=== PATIENT | female | born 1970 | race Caucasian/White ===

== ENCOUNTER 2018-04-01 16:41 | Emergency (ER) | payer SELFPAY ==
--- NOTE | 2018-04-01 17:08 | ED Physician Documentation ---
General Adult - HISTORIAN Historian: patient - HPI Stated Complaint: Weakness/Headache x 4 Days Chief Complaint: General Adult Additional Information: 4 days aching occipital CORTES. Feels tired, like she is about to pass out. Has been in the heat a lot. Walks wherever she goes. Urine x2 today. Some itching with urination. Calls herself homeless, but lives with aunt. Was on cholesterol med, but ran out last evening. Was living in [place] and had health care there . - ROS CONST: no problems - PAST HX Past History: other (HLD) Allergies/Adverse Reactions: Allergies Allergy/AdvReac Type Severity Reaction Status Date / Time Sulfa (Sulfonamide Allergy Verified 04/01/18 17:01 Antibiotics) - SOCIAL HX Smoking History: cigarettes - FAMILY HX Family History: No - VITAL SIGNS Vital Signs: Vital Signs Temp Pulse Resp BP Pulse Ox 98.1 F 82 16 101/76 95 04/01/18 16:45 04/01/18 16:45 04/01/18 16:45 04/01/18 16:45 04/01/18 16:45 - REVIEWED ASSESSMENTS Nursing Assessment Reviewed: Yes Vitals Reviewed: Yes Progress - Progress Progress: Orthostatics and labs good. Feels good after 1L NS and toradol. Ready to go home. ED Results Lab/Radiology - Orders Orders: ED Orders Category Date Time Status Place IV Lock 1T Care 04/01/18 17:05 Active CBC/PLATELET/DIFF Routine Lab 04/01/18 Ordered CMP Routine Lab 04/01/18 Ordered URINALYSIS Routine Lab 04/01/18 Ordered 0.9 % Sodium Chloride [Normal Saline] 1,000 ml Med 04/01/18 17:05 Active IV Q1H Ketorolac Tromethamine [Toradol] Med 04/01/18 17:05 Once 30 mg IVP NOW ONE General Adult Physical Exam - PHYSICAL EXAM GENERAL APPEARANCE: mild distress EENT: eye inspection normal, ENT inspection normal, pharynx normal, dry mucous membranes NECK: normal inspection, supple RESPIRATORY: no resp distress, breath sounds normal CVS: reg rate & rhythm, heart sounds normal, no murmur ABDOMEN: no distension, other (reports discomfort with palpation with right mid to lower abdomen) BACK: normal inspection, no CVA tenderness EXTREMITIES: non-tender, normal range of motion NEURO: CN's nml as tested, motor nml, sensation nml, cognition normal Discharge Clincal Impression: Headache Qualifiers: Headache type: unspecified Headache chronicity pattern: acute headache Intractability: not intractable Qualified Code(s): R51 - Headache Referrals: Primary Doctor,No [Primary Care Provider] - 2 Days Additional Instructions: YOUR LABORATORY TEST RESULTS WERE REASSURING. DRINK PLENTY OF WATER. Condition: Good Disposition: 01 HOME, SELF-CARE Decision to Admit: NO Decision Time: 17:55
[2018-04-01] MEDS: KETOROLAC TROMETHAMINE 30 MG/1ML VIAL IVP ONE (17:20)
[2018-04-01] MEDS: 0.9 % SODIUM CHLORIDE 1,000 ML IV ONE (17:20)
[2018-04-01 17:38] LABS: BASOPHILS % 0.4 (0.0-1.5); EOSINOPHILS % 1.3 % (0.0-6.8); MEAN CORPUSCULAR HEMOGLOBIN 31.7 pg (28.0-34.0); MEAN CORPUSCULAR VOLUME 93.9 fl (80.0-100.0); MONOCYTES % 3.8 % (0.0-11.0)
[2018-04-01 17:46] LABS: eGFR (African) > 60; eGFR (Non-African) > 60
[2018-04-01 18:05] VITALS: BP 113/71
[2018-04-02 07:52] LABS: APPEARANCE,URINE CLEAR (CLEAR); COLOR,URINE YELLOW (YELLOW); OCCULT BLOOD,URINE 2+ (NEGATIVE)
[2018-04-02 07:54] LABS: PH URINE 5.5 (5.0 - 8.0); UROBILINOGEN URINE 0.2 Eu (0.2-1.0)
== END 2018-04-01 18:02 | disposition home or self-care (01) ==
LOC: ED 16:41
DX: R51 Headache (principal)
CPT/HCPCS: 80053; 85025; J1885; J7030; 81002; 96365; 96375; 99284; S1016

== ENCOUNTER 2018-05-11 10:50 | Emergency (ER) | payer SELFPAY ==
[2018-05-11 11:00] VITALS: BP 119/81
--- NOTE | 2018-05-11 11:19 | ED Physician Documentation ---
Abdominal Pain - HISTORIAN Historian: patient - HPI Stated Complaint: Abd/back pain Chief Complaint: Abdominal Pain Additonal Information: Patient states that she has had about a 10 day history of abd pain. left lower abd area and radiates into flank area. No hematuria noted. Is having some discomfort with urination. BM have been OK. No blood in stool. Has had some mild nausea, no vomiting. No fever or chills. Has been having some bad headaches. If she gets dehydrated or has and infection in her body she will get headaches. Feels tired. Has gone through menopause. Onset: days ago (10 days) Duration: constant Timing: still present Context: denies: out of country travel, bad food Severity: moderate Quality: aching Associated Symptoms: nausea. denies: fever, chills Exacerbated by: nothing Relieved by: nothing - ROS CONST: no problems GI/: problems urinating. denies: constipation, black stools, bloody urine, bloody stools, dark urine CVS/RESP: denies: palpitations, shortness of breath, hurts to breath - SOCIAL HX Smoking History: greater than 1 pack/day (30 cig / day) Alcohol Use: none Drug Use: none - FAMILY HX Family History: no significant history - PAST HX Past History: none Ischemic Bowel Risk Factors: none Surgeries/Procedures: cholecystectomy, BLT, other (ovarian cyst removed) Immunizations: referred to PCP Home Medications: Ambulatory Orders Medication Instructions Recorded NK 05/11/18 Allergies/Adverse Reactions: Allergies Allergy/AdvReac Type Severity Reaction Status Date / Time Sulfa (Sulfonamide Allergy Verified 05/11/18 11:00 Antibiotics) - VITAL SIGNS Vital Signs: Vital Signs Temp Pulse Resp BP Pulse Ox 96.2 F L 74 15 119/81 97 05/11/18 15:19 05/11/18 15:19 05/11/18 15:19 05/11/18 15:19 05/11/18 15:19 - REVIEWED ASSESSMENTS Nursing Assessment Reviewed: Yes Vitals Reviewed: Yes Progress - Progress Progress: 13:52 Abd pain about the same. labs and x-ray OK. Will get CT scan 15:13 Patient advised that her blood work, urine and CT scan was normal. Possible viral infection or colon problem. If not improving to consider a colonoscopy. ED Results Lab/Radiology - Lab Results Lab Results: Lab Results 05/11/18 05/11/18 Unknown Unknown WBC 7.30 K/ul K/ul (4.00-12.00) RBC 4.44 M/ul M/ul (3.90-5.20) Hgb 13.6 g/dL g/dL (12.0-16.0) Hct 41.7 % % (34.5-46.5) MCV 93.9 fl fl (80.0-100.0) MCH 30.6 pg pg (28.0-34.0) MCHC 32.6 g/dL g/dL (30.0-36.0) RDW 13.5 % % (11.3-14.3) Plt Count 214 K/mm3 K/mm3 (130-400) Neut % (Auto) 60.7 % % (39.0-79.0) Lymph % (Auto) 32.5 % % (16.0-50.0) Kingfisher % (Auto) 3.2 % % (0.0-11.0) Eos % (Auto) 1.4 % % (0.0-6.8) Baso % (Auto) 0.4 (0.0-1.5) Neut # (Auto) 4.4 # k/uL # k/uL (1.4-7.7) Lymph # (Auto) 2.4 # k/uL # k/uL (0.6-4.0) Kingfisher # (Auto) 0.2 # k/uL # k/uL (0.0-0.9) Eos # (Auto) 0.1 # k/uL # k/uL (0.0-0.6) Baso # (Auto) 0.0 # k/uL # k/uL (0.0-0.5) Reactive Lymphs % 1.8 % % (0.0-5.0) Reactive Lymphs # 0.1 # k/uL # k/uL (0.0-0.8) Sodium 142 mmol/L mmol/L (136-145) Potassium 3.8 mmol/L mmol/L (3.5-5.1) Chloride 104 mmol/L mmol/L (98-107) Carbon Dioxide 29 mmol/L mmol/L (22-30) BUN 12 mg/dL mg/dL (7-17) Creatinine 0.70 mg/dL mg/dL (0.52-1.04) Estimated Creat Clear 142 Est GFR ( Amer) > 60 (60 - ) Est GFR (Non-Af Amer) > 60 (60 - ) Glucose 101 mg/dL mg/dL (74-106) Calcium 8.7 mg/dL mg/dL (8.4-10.2) Total Bilirubin 0.3 mg/dL mg/dL (0.2-1.3) AST 12 U/L L U/L (15-46) ALT 22 U/L U/L (13-69) Alkaline Phosphatase 92 U/L U/L (38-126) Total Protein 7.7 g/dL g/dL (6.3-8.2) Albumin 4.3 g/dL g/dL (3.5-5.0) Lipase 52 U/L U/L (23-300) - Radiology Radiology Impressions: PA chest and obstructive series History: Left lower quadrant pain and bloating PA chest demonstrates a calcified granuloma at the mid right lung. Otherwise, the lungs are clear. The cardiomediastinal silhouette is normal. Flat and upright views of the abdomen demonstrate no free air. Clips from a cholecystectomy are present. Clips from tubal ligation are present. The bowel gas pattern is nonobstructive. Psoas margins are intact. No abnormal calcifications are noted. Impression: Old granulomatous disease. No acute cardiopulmonary process. Status post cholecystectomy. Nonobstructive bowel gas pattern. Clips from tubal ligation. CT abdomen and pelvis with contrast History: Left lower quadrant pain Technique: Helically acquired images were obtained from the hemidiaphragms to the pelvic floor following IV but no oral contrast. Findings: There has been a cholecystectomy. The liver, spleen, adrenal glands, pancreas and the left kidney are unremarkable. At the upper pole right kidney, there is a 1 cm cyst. Otherwise, the right kidney is unremarkable. The abdominal aorta is normal in caliber. Small and large bowel loops are normal in caliber. The appendix is normal. Tubal ligation clips are present the pelvis with some beam hardening artifact. Otherwise, the uterus, adnexal structures and bladder are unremarkable. There is no free fluid in the abdomen or pelvis. There is a 1 cm bleb at the right lower lobe. Otherwise, the lung bases are clear. No significant osseous abnormalities are noted. Impression: Status post cholecystectomy and bilateral tubal ligation. 1 cm cyst upper pole right kidney. No acute intra-abdominal intrapelvic abnormality. - Orders Orders: ED Orders Category Date Time Status Place IV Lock 1T Care 05/11/18 11:26 Active ABD SERIES PA CHEST [RAD] Stat Exams 05/11/[address] ABD & PELVIS W/ CON Stat Exams 05/11/18 Taken CBC/PLATELET/DIFF Routine Lab 05/11/18 Completed CMP Routine Lab 05/11/18 Completed LIPASE Routine Lab 05/11/18 Completed URINALYSIS Routine Lab 05/11/18 11:59 Ordered Abdominal Pain Physical Exam - Physical Exam General Appearance: alert, mild distress EENT: ENT inspection normal NECK: normal inspection, supple. No: stiff neck RESPIRATORY: no resp distress, chest non-tender, breath sounds normal. No: wheezes, rales, rhonchi CVS: reg rate & rhythm, heart sounds normal, equal pulses, no murmur ABDOMEN: soft, no organomegaly, normal bowel sounds, no distension, tenderness (LLQ area). No: mass, rebound, guarding BACK: normal inspection, CVA tenderness (R) SKIN: warm/dry, normal color NEURO: oriented X3, CN's nml as tested, motor nml, sensation nml, mood/affect nml, cognition normal Vital Signs: Vital Signs Temp Pulse Resp BP Pulse Ox 96.2 F L 74 15 119/81 97 05/11/18 15:19 05/11/18 15:19 05/11/18 15:19 05/11/18 15:19 05/11/18 15:19 Discharge Clincal Impression: Abdominal pain Referrals: Primary Doctor,No [Primary Care Provider] - 2 Days Additional Instructions: Try taking in a clear liquid diet for the next 24 hours. Watch for any fever or chills. If you continue to have some abd pain to see your primary care provider for further work-up Condition: Stable Disposition: 01 HOME, SELF-CARE Decision to Admit: NO Date of Decison to Admit: 05/11/18 Decision Time: 15:06
[2018-05-11 12:02] LABS: BASOPHILS % 0.4 (0.0-1.5); EOSINOPHILS % 1.4 % (0.0-6.8); MEAN CORPUSCULAR HEMOGLOBIN 30.6 pg (28.0-34.0); MEAN CORPUSCULAR VOLUME 93.9 fl (80.0-100.0); MONOCYTES % 3.2 % (0.0-11.0); NEUTROPHILS # 4.4 # k/uL (1.4-7.7)
[2018-05-11 12:05] LABS: eGFR (African) > 60; eGFR (Non-African) > 60
--- NOTE | 2018-05-11 17:27 | Diagnostic Imaging Report ---
DIMAS SCHWARTZ [facility] [address] [facility].[address] [address] Report Submission Date: May 11, 2018 2:49:23 PM CDT Patient Study Name: ESTELITA CAGLE Date: May 11, 2018 2:08:49 PM CDT Modality Type: CT\SR Gender: F Description: CT ABD PELVIS W/ CON : 70 Institution: [facility] Physician: DIMAS SCHWARTZ CT abdomen and pelvis with contrast History: Left lower quadrant pain Technique: Helically acquired images were obtained from the hemidiaphragms to the pelvic floor following IV but no oral contrast. Findings: There has been a cholecystectomy. The liver, spleen, adrenal glands, pancreas and the left kidney are unremarkable. At the upper pole right kidney, there is a 1 cm cyst. Otherwise, the right kidney is unremarkable. The abdominal aorta is normal in caliber. Small and large bowel loops are normal in caliber. The appendix is normal. Tubal ligation clips are present the pelvis with some beam hardening artifact. Otherwise, the uterus, adnexal structures and bladder are unremarkable. There is no free fluid in the abdomen or pelvis. There is a 1 cm bleb at the right lower lobe. Otherwise, the lung bases are clear. No significant osseous abnormalities are noted. Impression: Status post cholecystectomy and bilateral tubal ligation. 1 cm cyst upper pole right kidney. No acute intra-abdominal intrapelvic abnormality. Electronically signed on May 11, 2018 2:49:23 PM CDT by: Rachael GALDAMEZ
[2018-05-11 17:28] LABS: APPEARANCE,URINE CLEAR (CLEAR); COLOR,URINE YELLOW (YELLOW); OCCULT BLOOD,URINE 1+ (NEGATIVE); PH URINE 5.5 (5.0 - 8.0); UROBILINOGEN URINE 0.2 Eu (0.2-1.0)
--- NOTE | 2018-05-11 17:33 | Diagnostic Imaging Report ---
DIMAS SCHWARTZ [facility] [address] [facility].[address] [address] Report Submission Date: May 11, 2018 2:49:23 PM CDT Patient Study Name: ESTELITA CAGLE Date: May 11, 2018 2:08:49 PM CDT Modality Type: CT\SR Gender: F Description: CT ABD PELVIS W/ CON : 70 Institution: [facility] Physician: DIMAS SCHWARTZ CT abdomen and pelvis with contrast History: Left lower quadrant pain Technique: Helically acquired images were obtained from the hemidiaphragms to the pelvic floor following IV but no oral contrast. Findings: There has been a cholecystectomy. The liver, spleen, adrenal glands, pancreas and the left kidney are unremarkable. At the upper pole right kidney, there is a 1 cm cyst. Otherwise, the right kidney is unremarkable. The abdominal aorta is normal in caliber. Small and large bowel loops are normal in caliber. The appendix is normal. Tubal ligation clips are present the pelvis with some beam hardening artifact. Otherwise, the uterus, adnexal structures and bladder are unremarkable. There is no free fluid in the abdomen or pelvis. There is a 1 cm bleb at the right lower lobe. Otherwise, the lung bases are clear. No significant osseous abnormalities are noted. Impression: Status post cholecystectomy and bilateral tubal ligation. 1 cm cyst upper pole right kidney. No acute intra-abdominal intrapelvic abnormality. Electronically signed on May 11, 2018 2:49:23 PM CDT by: Rachael GALDAMEZ
== END 2018-05-11 15:19 | disposition home or self-care (01) ==
LOC: ED 10:50
DX: R10.9 Unspecified abdominal pain (principal)
CPT/HCPCS: 74022; 74177; 80053; 81002; 83690; 85025; 99284; S1016

== ENCOUNTER 2018-06-18 15:25 | Emergency (ER) | payer SELFPAY ==
[2018-06-18] MEDS: KETOROLAC TROMETHAMINE 60 MG/2 ML VIAL IM ONE (15:52)
[2018-06-18] MEDS: ORPHENADRINE CITRATE 60 MG/2ML IM ONE (15:52)
--- NOTE | 2018-06-18 16:04 | ED Physician Documentation ---
General Adult - HISTORIAN Historian: patient - HPI Stated Complaint: dizzy Chief Complaint: General Adult Additional Information: Aching bi temporal CORTES for a week and a half. Feels tired and sometimes light headed. Sometimes hard to swallow. Tylenol helps a little. Has had CORTES's in the past, but this is different. Also wonders if she has a UTI as she thinks she is urinating frequently and has burning with urination.No other modifying factors or associated signs. - ROS CONST: denies: fever NEURO/PSYCH: denies: tingling, numbness, difficulty walking - PAST HX Past History: none Allergies/Adverse Reactions: Allergies Allergy/AdvReac Type Severity Reaction Status Date / Time Sulfa (Sulfonamide Allergy Verified 06/18/18 15:43 Antibiotics) Home Medications: Ambulatory Orders Medication Instructions Recorded Cyclobenzaprine HCl [Flexeril] 10 mg PO HS #10 tablet 06/18/18 Naproxen [Naprosyn] 375 mg PO Q12H #20 tablet 06/18/18 - SOCIAL HX Smoking History: cigarettes - FAMILY HX Family History: No - VITAL SIGNS Vital Signs: Vital Signs Temp Pulse Resp BP Pulse Ox 98.3 F 77 18 140/88 99 06/18/18 15:29 06/18/18 15:29 06/18/18 15:29 06/18/18 15:29 06/18/18 15:29 - REVIEWED ASSESSMENTS Nursing Assessment Reviewed: Yes Vitals Reviewed: Yes ED Results Lab/Radiology - Orders Orders: ED Orders Category Date Time Status Ketorolac Tromethamine [Toradol] Med 06/18/18 15:52 Once 60 mg IM NOW ONE Orphenadrine Citrate [Norflex] Med 06/18/18 15:52 Once 60 mg IM NOW ONE General Adult Physical Exam - PHYSICAL EXAM GENERAL APPEARANCE: mild distress EENT: eye inspection normal, ENT inspection normal, pharynx normal, DORA (EOMI), no nystagmus NECK: normal inspection, supple, other (L trap spasm. Palpation of this area reproduces her pain) RESPIRATORY: no resp distress, breath sounds normal CVS: reg rate & rhythm, heart sounds normal, no murmur BACK: normal inspection, no CVA tenderness, other (L trap spasm as above) SKIN: warm/dry, normal color EXTREMITIES: normal range of motion (gait and stance), no evidence of injury NEURO: CN's nml as tested, motor nml, sensation nml Discharge Clincal Impression: Trapezius muscle spasm Prescriptions: Cyclobenzaprine HCl [Flexeril] 10 mg PO HS #10 tablet Naproxen [Naprosyn] 375 mg PO Q12H #20 tablet Referrals: Primary Doctor,No [Primary Care Provider] - 2 Days Condition: Good Disposition: 01 HOME, SELF-CARE Decision to Admit: NO Decision Time: 16:00
[2018-06-18 16:13] VITALS: BP 130/68
[2018-06-20 08:30] LABS: APPEARANCE,URINE CLOUDY (CLEAR); COLOR,URINE YELLOW (YELLOW); OCCULT BLOOD,URINE 2+ (NEGATIVE); PH URINE 5.5 (5.0 - 8.0); UROBILINOGEN URINE 0.2 Eu (0.2-1.0)
== END 2018-06-18 16:12 | disposition home or self-care (01) ==
LOC: ED 15:25
DX: R42 Dizziness and giddiness (principal); S29.012A Strain of muscle and tendon of back wall of thorax, initial encounter; X58.XXXA Exposure to other specified factors, initial encounter; Y93.89 Activity, other specified; Y92.9 Unspecified place or not applicable; Y99.8 Other external cause status
CPT/HCPCS: J1885; J2360; 81002; 96372; 99283

== ENCOUNTER 2018-08-02 20:42 | Emergency (ER) | payer SELFPAY ==
--- NOTE | 2018-08-02 21:12 | ED Physician Documentation ---
General Adult - HISTORIAN Historian: patient, paramedics - HPI Stated Complaint: arm and face tingling Chief Complaint: General Adult Additional Information: At least two days of intermittent aching and tingling in right arm and hand, less often tingling into right leg. More concerned this evening because pain was also in right cheek. 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 No treatment attempted. Per EMS: on arrival, pt told them she thought she was having a stroke, and then walked down two flights of icy stairs to ambulance. No other modifying factors or associated events. - ROS CONST: no problems - PAST HX Past History: other (drug abuse, past trap spasm, ETOH) Allergies/Adverse Reactions: Allergies Allergy/AdvReac Type Severity Reaction Status Date / Time Sulfa (Sulfonamide Allergy Verified 06/18/18 15:43 Antibiotics) Home Medications: Ambulatory Orders Medication Instructions Recorded Cyclobenzaprine HCl [Flexeril] 10 mg PO HS #10 tablet 06/18/18 Naproxen [Naprosyn] 375 mg PO Q12H #20 tablet 06/18/18 - SOCIAL HX Smoking History: non-smoker Alcohol Use: heavy (, lat 19 years ago) Drug Use: cocaine (last 21 years ago) - FAMILY HX Family History: No - VITAL SIGNS Vital Signs: Vital Signs Temp Pulse Resp BP Pulse Ox 130/68 06/18/18 16:12 - REVIEWED ASSESSMENTS Nursing Assessment Reviewed: Yes Vitals Reviewed: Yes General Adult Physical Exam - PHYSICAL EXAM GENERAL APPEARANCE: no distress EENT: eye inspection normal, ENT inspection normal, pharynx normal, no signs of dehydration, DORA, no nystagmus, other (no facial asymmetry) NECK: normal inspection, supple, other (right trapezius spasm, palpation reproduces her symptoms ). No: stiff neck RESPIRATORY: no resp distress, breath sounds normal CVS: reg rate & rhythm, heart sounds normal, no murmur BACK: normal inspection, no CVA tenderness, other (no vertebral tenderness) SKIN: warm/dry, normal color EXTREMITIES: no evidence of injury NEURO: CN's nml as tested, motor nml, sensation nml, cognition normal, other (reflexes 2+) Discharge Clincal Impression: Strain of right trapezius muscle Qualifiers: Encounter type: initial encounter Qualified Code(s): S46.811A - Strain of other muscles, fascia and tendons at shoulder and upper arm level, right arm, initial encounter Referrals: Primary Doctor,No [Primary Care Provider] - 2 Days Additional Instructions: Ice or gentle heat to the sore area of your neck and shoulder for 30 minutes of each hour you are awake for 10 days. Follow this with rolling your shoulders and gentle stretching of your arms and neck. You can take 1000 mg of Tylenol every 8 hours if needed for discomfort. You can also take 600 mg of ibuprofen with food every 8 hours if needed for discomfort. The muscle relaxants will help reduce pain and help you sleep better. Condition: Good Disposition: 01 HOME, SELF-CARE Decision to Admit: NO Decision Time: 21:29
[2018-08-02] MEDS ORDERED: ORPHENADRINE CITRATE 60 MG/2ML IM ONE (21:16)
[2018-08-02] MEDS ORDERED: KETOROLAC TROMETHAMINE 60 MG/2 ML VIAL IM ONE (21:16)
[2018-08-02 21:46] VITALS: BP 119/78
== END 2018-08-02 21:44 | disposition home or self-care (01) ==
LOC: ED 20:42
DX: S46.811A Strain of other muscles, fascia and tendons at shoulder and upper arm level, right arm, initial encounter (principal); R20.2 Paresthesia of skin; Y99.9 Unspecified external cause status
CPT/HCPCS: 96372; 99283; J1885

== ENCOUNTER 2018-10-09 19:15 | Emergency (ER) | payer SELFPAY ==
[2018-10-09] MEDS ORDERED: IPRATROPIUM/ALBUTEROL SULFATE 3 ML AMPUL.NEB NEB ONE (20:15)
[2018-10-09] MEDS ORDERED: SALINE FLUSH 10 ML DISP.SYRIN IVF ONE (21:24)
--- NOTE | 2018-10-09 21:30 | Diagnostic Imaging Report ---
ANGELLA LAFLEUR [facility] [address] [facility] [address] [place], [place]. [address] Report Submission Date: Oct 09, 2018 9:14:55 PM STORY READER Patient Study Name: ESTELITA CAGLE Date: Oct 09, 2018 8:09:02 PM STORY READER Modality Type: DX Gender: F Description: CHEST : 70 Institution: [facility] Physician: ANGELLA LAFLEUR PA AND LATERAL CHEST HISTORY: Cough. Smoker for 30 years. COMPARISON: PA and Lateral Chest dated October 09, 2018 demonstrates a calcified granuloma at the mid right lung. There is a relatively rounded density in the right hilar region which may represent a calcified lymph node. However, the patient is high risk and follow up chest CT would be recommended in an effort to exclude a neoplastic right hilar mass. Otherwise, the cardiomediastinal silhouette is normal and the lungs are clear. Impression: Calcified granuloma at the mid right lung. Asymmetric 1 cm rounded density projecting at the right hilum, possibly a calcified lymph node but chest CT would be recommended in an effort to exclude underlying small neoplasm in this high-risk patient. Electronically signed on Oct 09, 2018 9:14:55 PM STORY READER by: Rachael GALDAMEZ
--- NOTE | 2018-10-09 23:37 | Diagnostic Imaging Report ---
ANGELLA LAFLEUR [facility] [address] [facility] [address] [place], [place]. 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 Technique: CT of the chest is performed in contiguous axial slices with sagittal and coronal reconstructions. Findings: There is dependent atelectasis in the lungs. There is no pleural effusion or significant pleural thickening. Central airways are patent. The vascular structures enhance normally. There is no mediastinal or hilar mass or significant adenopathy. Abnormality seen on chest x-ray is felt to be related to pulmonary vasculature in the hilum. There is no mediastinal or hilar mass or significant adenopathy. Calcified granuloma on the right is incidentally noted. Impression: 1. Negative CT of the chest. Electronically signed on Oct 09, 2018 11:20:22 PM INSURANCE AGENCY SALES MANAGER by: Ruel GALDAMEZ
[2018-10-11 07:47] LABS: BASOPHILS % 0.9 (0.0-1.5); EOSINOPHILS % 2.2 % (0.0-6.8); MEAN CORPUSCULAR HEMOGLOBIN 31.3 pg (28.0-34.0); MONOCYTES % 10.4 % (0.0-11.0); NEUTROPHILS # 4.5 # k/uL (1.4-7.7)
[2018-10-11 07:48] LABS: eGFR (Non-African) > 60
== END 2018-10-09 23:34 | disposition home or self-care (01) ==
LOC: ED 19:15
DX: J40 Bronchitis, not specified as acute or chronic (principal)
CPT/HCPCS: 36415; 71046; 71260; 80053; 85025; 94640; 99283; 99284; Q9967; S1016

== ENCOUNTER 2018-10-25 09:05 | Emergency (ER) | payer SELFPAY ==
--- NOTE | 2018-10-25 09:35 | ED Physician Documentation ---
Upper Respiratory Symptoms - HISTORIAN Historian: patient - HPI Stated Complaint: cough Chief Complaint: Cough/ Upper Respiratory Additional Information: Patient is a 48-year-old female that presents to the ER with c/o cough and co ngestion. She states that she was seen in the ER a week ago and given and inhaler which helped but no antibiotic. She states that her sx's are worsening and now her cough is productive with greenish/yellow sputum. She also c/o low back pain due to the frequent coughing and sore throat. She has some sinus pressure and admits to smoking 1 1/2 ppd and has no desire to quit. Onset: days ago (started one week ago) Duration: constant Context: denies: recent foreign travel, insect bite(s) Severity: moderate Associated Symptoms: chills, runny nose, sinus pain, sore throat, productive cough. denies: fever Worsened by Deep Breath: No Further Comments: no - ROS CONST/EYES: denies: weakness CVS/RESP: none LYMPH: denies: swollen glands GI/: problems urinating. denies: vomiting, nausea NEURO/PSYCH: denies: fainting, dizziness MS/SKIN: muscle aches - PAST HX Lung Disease: none PE Risk Factors: none Surgeries/Procedures: cholecystectomy, , BLT, other (ovarian cysts) Allergies/Adverse Reactions: Allergies Allergy/AdvReac Type Severity Reaction Status Date / Time Sulfa (Sulfonamide Allergy Verified 10/25/18 09:21 Antibiotics) Home Medications: Ambulatory Orders Medication Instructions Recorded Albuterol Sulfate [Proair 2 puff INH Q4H PRN 08/02/18 Respiclick] Amoxicillin/Potassium Clav 875 each PO BS #20 tablet 10/25/18 [Augmentin 875Mg/125Mg] Guaifenesin [Mucus Relief] 600 mg PO BID #14 tab.er.12h 10/25/18 - SOCIAL HX Smoking History: greater than 1 pack/day Alcohol Use: none Drug Use: none - FAMILY HX Family History: none - VITAL SIGNS Vital Signs: Vital Signs Temp Pulse Resp BP Pulse Ox 98.0 F 120 H 20 120/75 97 10/25/18 09:10 10/25/18 11:21 10/25/18 11:21 10/25/18 11:21 10/25/18 11:21 - REVIEWED ASSESSMENTS Nursing Assessment Reviewed: Yes Vitals Reviewed: Yes ED Results Lab/Radiology - Lab Results Lab Results: Lab Results 10/25/18 09:45 Urine Color Yellow (YELLOW) Urine Appearance Clear (CLEAR) Urine pH 7.0 (5.0 - 8.0) Ur Specific Freeman 1.020 (1.010-1.030) Urine Protein Negative mg/dL mg/dL (NEGATIVE) Urine Ketones Negative mg/dL mg/dL (NEGATIVE) Urine Occult Blood 1+ H (NEGATIVE) Urine Nitrite Negative (NEGATIVE) Urine Bilirubin Negative (NEGATIVE) Urine Urobilinogen 0.2 Eu Eu (0.2-1.0) Ur Leukocyte Esterase Negative (NEGATIVE) Urine Glucose Negative mg/dL mg/dL (NEGATIVE) - Orders Orders: ED Orders Category Date Time Status UA MACRO DIP ONLY Routine Lab 10/25/18 09:45 Completed Upper Respiratory Symptoms - EXAM General Appearance: no acute distress, alert EENT: PERRL, ear nml, pain over sinuses, maxillary, pharynx nml, airway nml Neck: normal inspection, supple Respiratory: breath sounds nml, no pain on inspiration, speaks full sentences Abdomen: non-tender, nml bowel sounds, no distention CVS: reg rate & rhythm, heart sounds normal, equal pulses, no murmur Skin: color nml, no rash, warm,dry Extremities: normal range of motion Neuro/Psych: oriented x3, neuro intact, mood/affect nml Discharge Clincal Impression: Acute sinusitis, URI with cough and congestion Clincal Impression: (Ruled Out): Acute bronchiolitis Prescriptions: Amoxicillin/Potassium Clav [Augmentin 875Mg/125Mg] 875 each PO BS #20 tablet Guaifenesin [Mucus Relief] 600 mg PO BID #14 tab.er.12h Referrals: Primary Doctor,No [Primary Care Provider] - 2 Days Additional Instructions: Take antibiotic as directed until gone Increase fluid intake (no caffeine) CareNotes sent in regards to respiratory infection Mucinex BID for sinus pressure Follow up with PCP if no improvement May alternate Tylenol and Ibuprofen for discomfort Condition: Good Disposition: 01 HOME, SELF-CARE Decision to Admit: NO Decision Time: 11:20
[2018-10-25 10:09] LABS: APPEARANCE,URINE CLEAR (CLEAR); COLOR,URINE YELLOW (YELLOW); OCCULT BLOOD,URINE 1+ (NEGATIVE); UROBILINOGEN URINE 0.2 Eu (0.2-1.0)
[2018-10-25 11:23] VITALS: BP 120/75
== END 2018-10-25 09:59 | disposition home or self-care (01) ==
LOC: ED 09:05
DX: J01.90 Acute sinusitis, unspecified (principal); J06.9 Acute upper respiratory infection, unspecified; R05 Cough; R09.81 Nasal congestion; Z72.0 Tobacco use
CPT/HCPCS: 81002; 99282; 99283

== ENCOUNTER 2019-02-04 10:27 | Emergency (ER) | payer SELFPAY ==
--- NOTE | 2019-02-04 10:48 | ED Physician Documentation ---
Skin Rash - HISTORIAN Historian: patient - HPI Stated Complaint: rash Chief Complaint: Skin Rash Additional Information: Patient presents to ED with hives x 3 days. Patient was on amoxicillin for sinus infection x 7 days then developed a rash. PCP told patient to stop antibiotics and start benedryl. The rash has not improved and gotten worse. Onset: days ago (3) Timing: worse Duration: worse Location: generalized Quality: itchy Where: home Context: Medication Exposure: antibiotic Context: Food Exposure: none - ROS CONST: none CVS/RESP: none EYES/ENT: none GI/: none MS/SKIN/LYMPH: none NEURO/PSYCH: none - PAST HX Past History: none Other History: none Allergies/Adverse Reactions: Allergies Allergy/AdvReac Type Severity Reaction Status Date / Time Sulfa (Sulfonamide Allergy Verified 10/25/18 09:21 Antibiotics) Home Medications: Ambulatory Orders Medication Instructions Recorded Albuterol Sulfate [Proair 2 puff INH Q4H PRN 08/02/18 Respiclick] Amoxicillin/Potassium Clav 875 each PO BS #20 tablet 10/25/18 [Augmentin 875Mg/125Mg] Guaifenesin [Mucus Relief ER] 600 mg PO BID #14 tab.er.12h 10/25/18 predniSONE [Deltasone] 20 mg PO DIRECTED #12 tablet 02/04/19 - SOCIAL HX Smoking History: cigarettes Alcohol Use: none Drug Use: none - FAMILY HX Family History: none - VITAL SIGNS Vital Signs: Vital Signs Temp Pulse Resp BP Pulse Ox 98.6 F 115 H 16 118/85 97 02/04/19 10:29 02/04/19 10:29 02/04/19 10:29 02/04/19 10:29 02/04/19 10:29 - REVIEWED ASSESSMENTS Nursing Assessment Reviewed: Yes Vitals Reviewed: Yes ED Results Lab/Radiology - Orders Orders: ED Orders Category Date Time Status methylPREDNISolone SOD SUCC [SOLU-Medrol] Med 02/04/19 10:49 Discontinued 125 mg IM NOW ONE Skin Rash Physical Exam - EXAM General Appearance: no acute distress, alert Skin: warm,dry Location: generalized Character: urticarial Symptoms: swelling, well defined border Extremities: non-tender, no edema EENT: pharynx nml Neck: no swelling Respiratory: no resp distress, chest non-tender, breath sounds normal CVS: reg. rate & rhythm, heart sounds nml Abdomen: non-tender Neuro/Psych: oriented x3, CN's nml as tested, mood/affect nml Discharge Clincal Impression: Urticaria due to drug allergy Prescriptions: predniSONE [Deltasone] 20 mg PO DIRECTED #12 tablet Referrals: Primary Doctor,No [Primary Care Provider] - 2 Days Additional Instructions: 1. Do not take Penicillin based medications again 2. Take Prednison as directed, finish the course 3. Take Benedryl as needed for itching 4. Follow up with PCP within 1 week 5. Return to the ER for new or worsening symptoms Condition: Stable Decision to Admit: NO Date of Decison to Admit: 02/04/19 Decision Time: 11:23
[2019-02-04] MEDS ORDERED: methylPREDNISolone SOD SUCC 125 MG/2 ML VIAL IM ONE (10:49)
[2019-02-04 11:53] VITALS: BP 116/87
== END 2019-02-04 11:40 | disposition home or self-care (01) ==
LOC: ED 10:27
DX: L50.0 Allergic urticaria (principal); T36.0X5A Adverse effect of penicillins, initial encounter; Y92.009 Unspecified place in unspecified non-institutional (private) residence as the place of occurrence of the external cause
CPT/HCPCS: 96372; 99283; J2930

== ENCOUNTER 2019-07-03 12:00 | Emergency (ER) | payer SELFPAY ==
[2019-07-04 07:20] LABS: APPEARANCE,URINE Y (CLEAR); COLOR,URINE CL (YELLOW); OCCULT BLOOD,URINE 2+ (NEGATIVE); PH URINE 5.5 (5.0 - 8.0); UROBILINOGEN URINE 0.2 Eu (0.2-1.0)
--- NOTE | 2019-07-25 14:12 | Diagnostic Imaging Report ---
STACY JOY [facility] [id number] [facility] [address] [address] Report Submission Date: Jul 03, 2019 1:06:47 PM CDT Patient Study Name: ESTELITA CAGLE Date: Jul 03, 2019 12:33:08 PM CDT Modality Type: CT\SR Gender: F Description: RENAL STONE PROTOCOL : 70 Institution: [facility] Physician: STACY JOY Examination: CT Abdomen/pelvis History: LEFT FLANK PAIN AND LLQ PAIN X 2 WEEKS Comparison exams: None available Technique: CT Abdomen/pelvis without IV protocol. Findings: Liver, spleen, adrenals and pancreas are without gross irregularity given exam technique. Surgical clips gallbladder fossa. No suspicious right renal calcifications. Small mid calyceal left calcifications. Ureters are nondilated in their course through the abdomen and pelvis. No central calcifications. Bladder decompressed. Pelvic phleboliths. Abdominal aorta without aneurysm. Peripheral atherosclerotic disease. Cardiac silhouette is not enlarged. No pericardial effusion. Bowel unopacified limiting evaluation. No abnormal dilation. Stool within the large bowel limiting sensitivity. No mesenteric inflammatory changes or free fluid. Appendix the region without inflammation. Tubal ligation clips. Osseous structures demonstrates mild degenerative changes. Mild L4/L5 listhesis. Lung bases without infiltrate. Right middle lobe and right hilar calcified granuloma. No effusion. Impression: No acute upper abdominal organ inflammatory process. No abnormal bowel dilation or inflammation. Moderate to significant large bowel stool. Left nephrolithiasis. No abnormal ureteric dilation. No lung base consolidation or effusion. Electronically signed on Jul 03, 2019 1:06:47 PM CDT by: Yoandy GALDAMEZ
== END 2019-07-03 13:18 | disposition home or self-care (01) ==
LOC: ED 12:00
DX: N30.00 Acute cystitis without hematuria (principal)
CPT/HCPCS: 74176; 81002

== ENCOUNTER 2019-07-06 10:25 | Emergency (ER) | payer SELFPAY ==
--- NOTE | 2019-07-06 10:45 | ED Physician Documentation ---
General Adult - HISTORIAN Historian: patient - HPI Stated Complaint: weakness, fatigue Chief Complaint: General Adult Onset: days ago (3) Timing: still present Severity: moderate Further Comments: yes (She states on Thursday she was treated here in the ER for UTI and had the "same" LLQ abd pain as she is having at this time. She denies any change in pain since starting meds. She has no fever. She is feeling "weak") - ROS CONST: recent illness (UTI) GI/: abdominal pain (LLQ ), problems urinating. denies: vomiting, nausea NEURO/PSYCH: denies: headache - PAST HX Past History: asthma Immunizations: UTD Allergies/Adverse Reactions: Allergies Allergy/AdvReac Type Severity Reaction Status Date / Time Penicillins Allergy Rash Verified 07/06/19 10:35 Sulfa (Sulfonamide Allergy Rash Verified 07/06/19 10:35 Antibiotics) Home Medications: Ambulatory Orders Medication Instructions Recorded Albuterol Sulfate [Proair 2 puff INH Q4H PRN 08/02/18 Respiclick] - SOCIAL HX Smoking History: cigarettes Alcohol Use: none Drug Use: none - FAMILY HX Family History: No - VITAL SIGNS Vital Signs: Vital Signs Temp Pulse Resp BP Pulse Ox 116/87 02/04/19 11:51 - REVIEWED ASSESSMENTS Nursing Assessment Reviewed: Yes Vitals Reviewed: Yes Progress - Progress Progress: 1225: refused CT and she is stating her pain is "much better" and she has no current complaints - she is ready to go home DG ED Results Lab/Radiology - Orders Orders: ED Orders Category Date Time Status IV Started NOW Care 07/06/19 10:40 Active ALCOHOL MEDICAL USE ONLY Stat Lab 07/06/19 Ordered CBC/PLATELET/DIFF Stat Lab 07/06/19 10:40 Ordered CMP Stat Lab 07/06/19 Ordered UA W/MICRO IF INDICATED Routine Lab 07/06/19 10:40 Ordered UDS [DRUG SCREEN URINE MEDICAL ONLY] Routine Lab 07/06/19 Ordered 0.9 % Sodium Chloride [Normal Saline] 1,000 ml Med 07/06/19 10:40 Active IV NOW General Adult Physical Exam - PHYSICAL EXAM GENERAL APPEARANCE: no distress EENT: eye inspection normal, pharynx normal, no signs of dehydration NECK: normal inspection RESPIRATORY: no resp distress, chest non-tender, breath sounds normal CVS: reg rate & rhythm, heart sounds normal ABDOMEN: soft, normal bowel sounds, no distension, non-tender BACK: normal inspection, no CVA tenderness SKIN: warm/dry, normal color EXTREMITIES: non-tender, normal range of motion NEURO: oriented X3 Discharge Clincal Impression: Abdominal pain Qualifiers: Abdominal location: left lower quadrant Qualified Code(s): R10.32 - Left lower quadrant pain Referrals: Primary Doctor,No [Primary Care Provider] - 2 Days Comments: 1. Pain is resolved - see PCP for any increasing pain 2. Finish your meds 3. Increase fluids 4. Return to ER for any increased concerns Condition: Stable Disposition: 01 HOME, SELF-CARE Decision to Admit: NO (t) Date of Decison to Admit: 07/06/19 Decision Time: 12:32
[2019-07-06] MEDS: 0.9 % SODIUM CHLORIDE 1,000 ML IV ONE (10:56)
[2019-07-06 11:12] LABS: eGFR (Non-African) > 60
[2019-07-06 11:31] LABS: BASOPHILS % 0.6 % (0.0-1.5); NEUTROPHILS # 5.7 # k/uL (1.4-7.7); SEGMENTED NEUTROPHILS % 56 % (39-79)
[2019-07-06 12:50] VITALS: BP 138/67
[2019-07-06 13:55] LABS: CANNABINOIDS NON NEGATIVE ng/mL (< 50); METHYLENEDIOXYMETHAMPHETAMINE NON NEGATIVE ng/mL (<500)
[2019-07-06 13:57] LABS: APPEARANCE,URINE CLEAR (CLEAR); COLOR,URINE YELLOW (YELLOW); OCCULT BLOOD,URINE NEGATIVE (NEGATIVE); UROBILINOGEN URINE 0.2 Eu (0.2-1.0)
== END 2019-07-06 12:38 | disposition home or self-care (01) ==
LOC: ED 10:25
DX: R10.32 Left lower quadrant pain (principal)
CPT/HCPCS: 80053; 80320; 80377; 81002; 85025; 96360; 99282; 99284; G0480; G0481; J7030; S1016

== ENCOUNTER 2019-08-10 08:07 | Emergency (ER) | payer SELFPAY ==
[2019-08-10] MEDS ORDERED: 0.9 % SODIUM CHLORIDE 1,000 ML IV ONE (08:37)
--- NOTE | 2019-08-10 08:58 | ED Physician Documentation ---
General Adult - HISTORIAN Historian: patient - HPI Stated Complaint: dizziness Chief Complaint: General Adult Additional Information: Patient presents to ED via EMS with complaints of dizziness. 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 She reports her mouth became dry and it was difficult for her to swallow. EMS was called. Patient has a history of anxiety. Patient denies chest pain. She did have some shortness of breath after she had difficulty swallowing due to dry mouth. Onset: minutes (30) Timing: gone now - ROS CONST: denies: fever EYES/ENT: denies: sore throat CVS/RESP: shortness of breath. denies: chest pain GI/: denies: vomiting, nausea MS/SKIN/LYMPH: denies: leg swelling NEURO/PSYCH: dizziness. denies: headache - PAST HX Past History: other (anxiety) Allergies/Adverse Reactions: Allergies Allergy/AdvReac Type Severity Reaction Status Date / Time Penicillins Allergy Rash Verified 08/10/19 08:37 Sulfa (Sulfonamide Allergy Rash Verified 08/10/19 08:37 Antibiotics) Home Medications: Ambulatory Orders Medication Instructions Recorded Albuterol Sulfate [Proair 2 puff INH Q4H PRN 08/02/18 Respiclick] - SOCIAL HX Smoking History: non-smoker Alcohol Use: none Drug Use: none - FAMILY HX Family History: No - VITAL SIGNS Vital Signs: Vital Signs Temp Pulse Resp BP Pulse Ox 99.1 F 88 16 145/81 98 08/10/19 08:07 08/10/19 08:07 08/10/19 08:07 08/10/19 08:07 08/10/19 08:07 - REVIEWED ASSESSMENTS Nursing Assessment Reviewed: Yes Vitals Reviewed: Yes Progress - Progress Progress: 0955 Patient feeling better after 1 liter NS. - EKG/XRAY/CT Comments: NSR [address] elevation ED Results Lab/Radiology - Orders Orders: ED Orders Category Date Time Status Place IV Lock 1T Care 08/10/19 08:37 Active CBC/PLATELET/DIFF Routine Lab 08/10/19 09:50 Received CMP Routine Lab 08/10/19 09:50 Received 0.9 % Sodium Chloride [Normal Saline] 1,000 ml Med 08/10/19 08:37 Active IV Q1H EKG WITH COMPARISON Stat Ther 08/10/19 Ordered General Adult Physical Exam - PHYSICAL EXAM GENERAL APPEARANCE: no distress EENT: TE JOHN'scarlett nml NECK: normal inspection, supple RESPIRATORY: no resp distress, chest non-tender CVS: reg rate & rhythm, heart sounds normal, equal pulses ABDOMEN: soft, normal bowel sounds BACK: normal inspection SKIN: warm/dry, normal color EXTREMITIES: non-tender, no evidence of injury, no edema NEURO: oriented X3, motor nml, mood/affect nml Discharge Clincal Impression: Dizziness on standing Referrals: Primary Doctor,No [Primary Care Provider] - 2 Days Additional Instructions: 1. Drink plenty of fluids to maintain proper hydration. Daily goal is 80 ounces daily. Avoid caffeine and alcohol 2. Stay active. Exercise is beneficial for stress reduction 3. Follow up with PCP within 1 week 4. Return to ER for new or worsening symptoms Condition: Stable Disposition: 01 HOME, SELF-CARE Decision to Admit: NO Date of Decison to Admit: 08/10/19 Decision Time: 09:58
[2019-08-10 09:08] LABS: eGFR (Non-African) > 60
[2019-08-10 09:21] LABS: BASOPHILS % 0.5 % (0.0-1.5); NEUTROPHILS # 5.3 # k/uL (1.4-7.7)
[2019-08-10 09:22] LABS: BASOPHILS % 1 % (0-2); SEGMENTED NEUTROPHILS % 61 % (39-79)
[2019-08-10 10:26] VITALS: BP 127/67
== END 2019-08-10 10:25 | disposition home or self-care (01) ==
LOC: ED 08:07
DX: R42 Dizziness and giddiness (principal)
CPT/HCPCS: 36415; 80053; 85025; 93005; 96360; 99283; 99284; J7030; S1016

== ENCOUNTER 2019-08-24 16:01 | Emergency (ER) | payer SELFPAY ==
--- NOTE | 2019-08-24 16:05 | ED Physician Documentation ---
General Adult - HISTORIAN Historian: patient - HPI Stated Complaint: diarrhea and body aches x 2 days no fever Chief Complaint: Nausea,Vomiting,Diarrhea Onset: days ago (2) Timing: still present Severity: mild Further Comments: yes (She reports two days ago she started with body aches, diarrhea and nausea with no vomiting. Denies any fever. NO sick contacts . No rash) - ROS CONST: no problems GI/: nausea, diarrhea - PAST HX Past History: none Immunizations: UTD Allergies/Adverse Reactions: Allergies Allergy/AdvReac Type Severity Reaction Status Date / Time Penicillins Allergy Rash Verified 08/24/19 16:17 Sulfa (Sulfonamide Allergy Rash Verified 08/24/19 16:17 Antibiotics) Home Medications: Ambulatory Orders Medication Instructions Recorded NK 08/24/19 - SOCIAL HX Smoking History: cigarettes Alcohol Use: none Drug Use: none - FAMILY HX Family History: No - VITAL SIGNS Vital Signs: Vital Signs Temp Pulse Resp BP Pulse Ox 127/67 08/10/19 10:25 - REVIEWED ASSESSMENTS Nursing Assessment Reviewed: Yes Vitals Reviewed: Yes General Adult Physical Exam - PHYSICAL EXAM GENERAL APPEARANCE: no distress EENT: eye inspection normal, ENT inspection normal, pharynx normal, no signs of dehydration NECK: normal inspection RESPIRATORY: no resp distress, chest non-tender, breath sounds normal CVS: reg rate & rhythm, heart sounds normal, equal pulses ABDOMEN: soft, normal bowel sounds, no distension, non-tender BACK: normal inspection, no CVA tenderness SKIN: warm/dry EXTREMITIES: non-tender, normal range of motion, no evidence of injury, no edema NEURO: oriented X3 Discharge Clincal Impression: Diarrhea Qualifiers: Diarrhea type: unspecified type Qualified Code(s): R19.7 - Diarrhea, unspecified Referrals: Primary Doctor,No [Primary Care Provider] - 2 Days Comments: 1. OTC meds as directed as needed for symptom management 2. Continue to push fluids - bland diet advance as tolerated 3. Follow up with PCP if no improvement in 2 days 4. Return to ER for any increased concerns Condition: Stable Disposition: 01 HOME, SELF-CARE Decision to Admit: NO Date of Decison to Admit: 08/24/19 Decision Time: 16:42
[2019-08-24 16:17] VITALS: BP 133/82
[2019-08-24] MEDS ORDERED: ONDANSETRON HCL 4 MG TAB.RAPDIS PO ONE (16:38)
[2019-08-25 06:19] LABS: APPEARANCE,URINE CLEAR (CLEAR); COLOR,URINE YELLOW (YELLOW)
[2019-08-25 06:20] LABS: OCCULT BLOOD,URINE 1+ (NEGATIVE); PH URINE 5.5 (5.0 - 8.0); UROBILINOGEN URINE 0.2 Eu (0.2-1.0)
== END 2019-08-24 16:46 | disposition home or self-care (01) ==
LOC: ED 16:01
DX: R19.7 Diarrhea, unspecified (principal)
CPT/HCPCS: 81002; 99282; 99283; A9270